=== PATIENT | female | born 1965 | race African-American/Black ===

== ENCOUNTER 2016-08-23 13:04 | Emergency (ER) | payer MEDICAID, OTHER ==
[~2016-08-23] VITALS: Ht 172.7 cm; Wt 90.7 kg
[~2016-08-23 13:04] MED LIST: IBUPROFEN800 MG ORAL; TYLENOL EXTRA500 MG ORAL
[2016-08-23 13:37] VITALS: BP 130/76
[2016-08-23] MEDS ORDERED: NAPROXEN500 M1 ORAL (14:05)
[2016-08-23] MEDS ORDERED: BACTRIM DS TAB1 EAC1 ORAL (14:05)
--- NOTE | 2016-08-23 14:06 | Emergency Room Report ---
History of Present Illness General Chief Complaint: Skin Rash/Abscess Source: Patient Present Illness HPI 50 y/o female c/o lump on back of scalp x 2 weeks. States she had a cyst that was diagnosed with imaging in the past that had been there for years but over the course of the past 2 weeks the cyst has become enlarged and warm to touch. States she has pain with palpation and sometimes will have pain when she moves her head to the left. Currently not taking any medications. Denies any relieving factors. Patient denies any fever, neck stiffness, vision changes, numbness, tingling, pressure, paralysis, cyanosis, bruising, loss of sensation, or loss of range of motion. Allergies: Coded Allergies: NO KNOWN ALLERGIES (Unverified Allergy, Unknown, 01/14/15) Patient History Past Medical History: see triage record Past Surgical History: none Pertinent Family History: none Last Menstrual Period: on control meausres Now: No Immunizations: UTD Reviewed Nursing Documentation: PMH: Agreed, PSxH: Agreed Nursing Documentation-PMH Past Medical History: No History, Except For Hx Asthma: Yes Review of Systems All Other Systems: negative except mentioned in HPI Physical Exam Vital Signs Date Time Temp Pulse Resp B/P Pulse Ox O2 Delivery O2 Flow Rate FiO2 08/23/16 13:37 98.2 52 14 130/76 100 Room Air Sp02 EP Interpretation: reviewed, normal General Appearance: no apparent distress, alert, GCS 15, non-toxic Head: normocephalic, atraumatic Eyes: bilateral eye normal inspection ENT: hearing grossly normal, normal pharynx, no angioedema, normal voice Neck: full range of motion, no bony tend, supple/symm/no masses Respiratory: chest non-tender, lungs clear, normal breath sounds, speaking full sentences Cardiovascular #1: regular rate, rhythm, no edema Musculoskeletal: back normal, gait/station normal, normal range of motion Neurologic: alert, oriented x3, responsive, motor strength/tone normal, sensory intact, speech normal Skin: normal color, warm/dry, well hydrated, other - 3cm soft cystic like mass on left posterior scalp that is warm to touch. No erythema or induration. Lymphatic: adenopathy - left suboccipital region Medical Decision Making PA Attestation Dr. Allen my supervising physician with whom patient management has been discussed with. Diagnostic Impression: Primary Impression: Inflamed sebaceous cyst ER Course Pt. presents to the ED c/o bump on neck Ddx considered but are not limited to sebaceous cyst, cellulitis, abscess, tumor , hematoma Vital signs: are WNL, pt. is afebrile H&PE are most consistent with reactive sebaceous cyst ORDERS: none required at this time, the diagnosis is clinical ED INTERVENTIONS: none required at this time. DISCHARGE: At this time pt. is stable for d/c to home. Will provide printed patient care instructions, and any necessary prescriptions. Care plan and follow up instructions have been discussed with the patient prior to discharge. Last Vital Signs Date Time Temp Pulse Resp B/P Pulse Ox O2 Delivery O2 Flow Rate FiO2 08/23/16 13:37 98.2 52 14 130/76 100 Room Air Disposition: HOME, SELF-CARE Condition: Stable Scripts Naproxen* (NAPROXEN*) 500 Mg Tablet.dr 500 MG ORAL TWICE A DAY for 10 Days, #20 TAB Prov: TIFFANIE BEAVERS.A. 08/23/16 Trimethoprim/Sulfamethoxazole 160/800* (BACTRIM DS TABLET*) 1 Each Tablet 1 TAB ORAL TWICE A DAY for 10 Days, #20 TAB Prov: TIFFANIE BEAVERS P.A. 08/23/16 Referrals: [facility],REFERR[facility] (PCP) Patient Instructions: Sebaceous Cyst Removal Additional Instructions: Take medication as directed. Patient advised to follow up with PCP and request surgical referral within the next 2-4 days. Patient instructed to take ibuprofen and tylenol as needed for pain. Patient to return for wound check in 2 -3 days either here, urgent care or with PCP. Advised patient to keep site of infection elevated above the level of their heart 3 or 4 times a day, for 30 minutes each time to help reduce swelling. Patient is to keep the infected area clean and dry. They can take a shower or bath, but be sure to pat the area dry with a towel afterward. Patient instructed to not put any antibiotic ointments or creams on the area. Patient should come back sooner if their symptoms do not get better within 3 days of starting treatment or if the red area gets bigger, more swollen, or more painful. TIFFANIE BEAVERS Aug 23, 2016 14:06
[2016-08-23 14:15] VITALS: BP 132/78
== END 2016-08-23 14:25 | disposition home or self-care (01) ==
LOC: EMR 13:59
DX: L72.3 Sebaceous cyst (principal); J45.909 Unspecified asthma, uncomplicated
CPT/HCPCS: 99284